=== PATIENT | male | born 1945 | race African-American/Black ===

== ENCOUNTER 2017-07-13 11:38 | Emergency (ER) | payer MEDICARE, MEDICAID ==
[~2017-07-13] VITALS: Ht 185.4 cm; Wt 63.0 kg
[2017-07-13 11:47] VITALS: BP 154/88
== END 2017-07-13 17:39 | disposition left against medical advice (07) ==
LOC: ER 12:46
DX: Z53.21 Procedure and treatment not carried out due to patient leaving prior to being seen by health care provider (principal)